=== PATIENT | male | born 1965 | race Caucasian/White ===

== ENCOUNTER 2020-06-14 09:14 | Outpatient (CLI) | payer OTHER, SELFPAY ==
--- NOTE | 2020-06-14 | ECG_ITS ---
Measurements Intervals [place] Rate: 68 P: 39 OH: 190 QRS: 51 QRSD: 98 T: 47 QT: 386 QTc: 412 Interpretive Statements SINUS RHYTHM INCOMPLETE RIGHT BUNDLE BRANCH BLOCK BORDERLINE ECG Electronically Signed On 06-14-2020 10:11:06 CDT by Shakir Welch D.O.
--- NOTE | ~2020-06-14 | XR_ITS ---
EXAMINATION: XR chest 2V DATE: 06/14/2020 09:54 INDICATION: Dyspnea on exertion. TECHNIQUE: Frontal and lateral views of the chest were obtained. COMPARISON: None. FINDINGS: The chest demonstrates clear lungs without pneumonia, pleural effusion, or pneumothorax. Th e heart size is normal. IMPRESSION: 1. No acute cardiopulmonary disease. Reviewed, dictated and finalized at location A.
== END 2020-06-14 09:15 | disposition home or self-care (01) ==
PROVIDERS: PCP Nurse Practitioner; Visit Provider Nurse Practitioner
DX: R06.00 Dyspnea, unspecified (principal); I45.10 Unspecified right bundle-branch block; R94.31 Abnormal electrocardiogram [ECG] [EKG]
CPT/HCPCS: 71046; 93005

== ENCOUNTER 2020-07-10 14:38 | Outpatient (CLI) | payer OTHER, SELFPAY ==
--- NOTE | 2020-07-10 | ECHO_ITS ---
Patient Info Name: Mynor Velazquez Age: 55 years : 1965 Gender: Male Ht: 72 in Wt: 300 lbs BSA: 2.69 m2 HR: 65 bpm BP: 114 / 80 mmHg Heart Rhythm: Sinus Rhythm Technical Quality: Fair Exam Date: 07/10/2020 3:11 PM Exam Location: [facility] Patient Status: Outpatient Admit Date: 07/10/2020 Staff Ordering Physician: PHYSICIAN NOT ON STAFF, NONSTAFF Sexual Health Physician: Lina Masterson RDCS Attending Provider: PHYSICIAN NOT ON STAFF, NONSTAFF Exam Type: CA echo doppler color flow Study Info Indications - abn ekg RBBB Complete two-dimensional, color flow and Doppler transthoracic echocardiogram is performed. Summary 1. Left ventricular systolic function is normal, estimated at 60-65%. 2. There is mildly increased left ventricular wall thickness. 3. The left ventricular diastolic function is normal. 4. Right ventricular chamber dimension is normal. 5. Right ventricular systolic function is mildly reduced. 6. Right atrial chamber dimension is mildly enlarged. 7. There is mild mitral valve regurgitation. 8. There is trace tricuspid valve regurgitation. 9. No pulmonary hypertension, estimated pulmonary arterial systolic pressure is 33 mmHg. 10. Normal inferior vena cava with >50% collapse upon inspiration consistent with normal right atrial pressure, 5 mmHg. Left Ventricle Left ventricular chamber dimension is normal. Left ventricular systolic function is normal, estimated at 60-65%. There is mildly increased left ventricular wall thickness. The left ventricular diastolic function is normal. Right Ventricle Right ventricular chamber dimension is normal. Right ventricular systolic function is mildly reduced. Left Atria Left atrial chamber dimension is normal. Right Atria Right atrial chamber dimension is mildly enlarged. Aortic Valve The aortic valve is not well visualized. There is mild aortic valve sclerosis. There is no aortic valve stenosis. There is no aortic valve regurgitation. Pulmonic Valve The pulmonic valve is not well visualized. There is trace pulmonic regurgitation. Mitral Valve The mitral valve has normal leaflets. There is mild mitral valve regurgitation. The mitral valve annulus is mildly calcified. Tricuspid Valve The tricuspid valve leaflets are normal. There is trace tricuspid valve regurgitation. No pulmonary hypertension, estimated pulmonary arterial systolic pressure is 33 mmHg. Pericardium/Pleural The pericardium appears normal. There is trivial pericardial effusion. Inferior Vena Cava Normal inferior vena cava with >50% collapse upon inspiration consistent with normal right atrial pressure, 5 mmHg. Aorta The aortic root size at the sinus of Valsalva is normal. There is mild aortic atherosclerosis. Left Ventricular Outflow Tract Name Value Normal LVOT 2D LVOT Diameter 2.1 cm LVOT Doppler LVOT Peak Gradient 4 mmHg LVOT Mean Gradient 2 mmHg LVOT VTI 20 cm LVOT VTI/AV VTI Ratio 0.9 LVOT Stroke Volume
== END 2020-07-10 14:39 | disposition home or self-care (01) ==
LOC: ANHCARD 14:39
PROVIDERS: PCP Nurse Practitioner
DX: R06.02 Shortness of breath (principal); I34.1 Nonrheumatic mitral (valve) prolapse
CPT/HCPCS: 93306